=== PATIENT | male | born 1950 | race Caucasian/White ===

== ENCOUNTER 2024-04-07 22:22 | Emergency (ER) | payer BC, SELFPAY ==
[2024-04-07 22:35] VITALS: BP 91/61
[2024-04-07 22:55] VITALS: BMI 25.7
--- NOTE | 2024-04-07 22:58 | ED.GENMED ---
History of Present Illness
General
Chief Complaint: Fainting Sensation
Time Seen by Provider: 04/07/24 22:24
Travel History
Have you had any contact with someone who has COVID-19?: No
Do you have any symptoms of coronavirus? Fever > 100 degrees, chills, cough, shortness of breath, sore throat, loss of taste or smell, muscle aches, or headache?: No
History of Present Illness
History of Present Illness:
73-year-old male history of seizures, hypertension, multiple myeloma presenting with possible seizure. Patient states that he went to the bathroom where he had loose stools and then needed help getting off the toilet which is not uncommon per
family at bedside. Patient states that his stepson helped into his room where he sat on his bed. Daughter at bedside states stepson left the room to go get patient Imodium, was gone for approximately 20 seconds, and when he came back he found
patient laying on the bed having an seizure. Daughter states that stepson states that seizure lasted approximately 30 seconds. Daughters deny any confusion/postictal state, no tongue biting, no incontinence. Daughter states that patient has had
seizures in the past which has been contributed to fever at that time. Patient denies recent fever, chills, chest pain, shortness of breath, dizziness, abdominal pain, nausea, vomiting, or urinary symptoms. Patient denies any numbness, weakness,
or tingling. Patient states he got IVIG on 05/06 with IV fluids. Patient denies any dizziness while walking from his bathroom to the bedroom. Patient is not on blood thinners. Patient states he had 4 teeth extracted on 04/03 and did not take
medications for 1 week prior to procedure. Patient states he has since resumed home medications.
Phy Exam
Physical Exam
Physical Exam:
General: Alert, no acute distress. No apparent trauma
Head: NCAT
Eyes: clear conjunctiva, PERRLA, EOMI
ENT: multiple teeth extracted from right upper, right lower, and left upper. no overlying erythema, no fluctuance, no discharge. no active bleeding
Neck: supple
Cardiac: regular rate and rhythm, no murmur
Lungs: clear to auscultation bilaterally. No wheezes, rales, or rhonchi. Speaking full unlabored sentences. No respiratory distress.
Abdomen: soft, nondistended nontender. No rebound or guarding.
MSK: no lower extremity edema bilaterally. No deformity
Skin: warm, dry
Neuro: Alert and oriented x3. Cranial nerves II through XII grossly intact no focal deficits. 5-5 strength bilateral upper and lower extremities. Normal finger-nose bilaterally. Sensation intact.
Course
Orders/Labs/Results
Orders:
Orders
04/07/24 22:56
EKG [Electrocardiogram (*1)] Urgent
Reason for Study: Syncope
CT Head W/o Iv Contrast Urgent
Comment:
Reason For Exam: ?seizure
EKG- Treatment ONCE
CXR2 [CR Chest - 2 Views ] Urgent
Comment:
Reason For Exam: cough
04/07/24 22:57
UA Reflex to Culture [Urinalysis Reflex To Culture] Urgent
Date Specimen was Collected: 04/08/24
Time Specimen was Collected: 01:36
0.9% Sodium Chloride 1000 ml [Nss] 1,000 ml IV BOLUS
04/07/24 23:01
C DIFF [C difficile Antigen & Toxins] Urgent
SUHAS Source: Feces/Stool
Specimen Description:
04/07/24 23:14
CBC/With Diff [Complete Blood Count/With Diff] Urgent
CMP [Comprehensive Metabolic Panel] Urgent
Troponin I Urgent
Abnormal Lab Results
04/07/24 04/08/24
23:14 01:41
RBC 3.09 L 10^6/uL
(4.70-6.10)
Hgb 11.0 L g/dL
(13.0-18.0)
Hct 29.8 L %
(39.0-52.0)
MCV 96.4 H fL
(80.0-94.0)
MCH 35.6 H pg
(27.0-31.0)
Plt Count 111 L 10^3/uL
(130-400)
Monocytes % 10.3 H %
(1.7-9.3)
BUN 22 H mg/dl
(9-20)
Glucose 129 H mg/dl
(70-99)
Urine Ketones Trace A
(Negative)
04/07/24 23:14
04/07/24 23:14
Vital Signs
Initial and Last Documented VS:
Initial Vital Signs
Temp Pulse Resp BP Pulse Ox
98.2 F 87 20 91/61 98
04/07/24 22:35 04/07/24 22:35 04/07/24 22:35 04/07/24 22:35 04/07/24 22:35
Last Documented Vital Signs
Temp Pulse Resp BP Pulse Ox
98.2 F 83 20 105/77 96
04/07/24 22:35 04/08/24 01:41 04/08/24 01:41 04/08/24 01:41 04/08/24 01:41
MDM/Problems Addressed
MDM/Problems Addressed:
Patient presents to the Emergency Department with seizure
Number and Complexity of Problems Addressed at the Encounter
� Chronic conditions affecting care:
� Acute Exacerbation and/or Progression of Chronic Illness:
� Differential Diagnosis includes: Seizure, orthostatic hypotension, vasovagal syncope, electrolyte abnormality, pneumonia, C. difficile
Amount and/or Complexity of Data to be Reviewed and Analyzed
� I performed an independent evaluation of and my interpretation is:
EKG: NSR at 86bpm with MD 158 QTc 461 no acute ischemic changes
CT:
Xrays: CXR shows no acute consolidation or infiltrate. No CHF. Port right upper chest wall terminating in SVC.
Laboratory Studies: mild anemia with hemoglobin 11 (no known baseline), thrombocytopenia with platelets 111, troponin/LFTs/electrolytes within normal limits. UA negative for UTI.
Other:
� Review of other/old records reveals:
� Clinical information was obtained by an independent historian:
� Prescriptions/Medications Considered but not given:
� Further testing considered but not performed:
Risk of Complications and/or Morbidity or Mortality of Patient Management
� Social Determinants of health affecting care:
� Discussion with other providers (PCP, Hospitalists, Consultants, etc):
� Escalation of care including admission/observation vs risk of discharge considered: 73yoM hx multiple myeloma presenting with possible seizure after he had a bowel movement and walked back to his room. Patient was not post ictal, no tongue biting,
no incontinence. Neurologically intact here in ER. Results reviewed, mild anemia with hemoglobin 11 (no known baseline), thrombocytopenia with platelets 111, troponin/LFTs/electrolytes within normal limits. UA negative for UTI. CXR clear with no
focal infiltrate or consolidation. CT head shows No evidence of acute intracranial abnormality. Opacification of approximately 75% of the left mastoid air cells, most likely benign trapped fluid. Please correlate with any clinical symptoms that
would suggest mastoiditis. Upon reevaluation, patient denies any complaints. Vitals stable. No tenderness to palpation left mastoid. Left TM clear with no bulging or erythema. Lower suspicion for seizure given patient was not postictal, no tongue
biting, no incontinence. Suspect orthostatic syncope that resulted in seizure like activity. Patient received 1L NS IV. Vitals stable. Patient did not have any bowel movements in ER. Discussed results with patient and family at bedside. Stable for
discharge home with PCP and oncology follow up.
*Critical Care Note
Total Time (30-74mins, 75-104mins- exclusive of procedures): Not Applicable
ED Attending Note
-
Portions of this chart may have been created with voice recognition software.� Occasional wrong word or��sound alike� substitutions may have occurred due to the inherent limitations of voice recognition software.
Discharge Plan
Departure
Patient Disposition: Home (Routine Discharge)
Date of Disposition: 04/08/24
Time of Disposition: 02:06
Patient with high blood pressure during this ER visit?: No
Discharge Problem:
Orthostatic syncope
Prescriptions:
No Action
Darzalex
1 dose SC WEEKLY
dexamethasone
20 mg PO Q7D
Rx Instructions:
Tuesday night
ibuprofen
600 mg PO Q6H PRN (Reason: pain)
selinexor
1 dose PO WEEKLY
valacyclovir
1,000 mg PO DAILY
Referrals:
Michael Reyna MD [Family Provider] -
Activity Restrictions/Additional Instructions:
Follow up with primary care doctor and oncology in 1-2 days
Return to the emergency department for chest pain, shortness of breath, fever or new/worsening symptoms
Interventions
Interventions:
*Risk Screen - Suicide Last Done: 04/07/24 22:35
*General Assessment Last Done: 04/07/24 22:35
*Neglect/Abuse Screening Last Done: 04/07/24 22:35
ED- Fall Risk Assessment Last Done: 04/07/24 22:35
*ED COVID-19 Vaccine History Last Done: 04/07/24 22:35
ED- Cardiac Assessment Last Done: 04/07/24 23:05
ED- Neurological Assessment Last Done: 04/07/24 23:05
Discharge Date and Time
Print Language: [place]
[2024-04-07 23:21] LABS: % Basophils 0.2 % (0-2); % Eosinophils 0.2 % (0-6); % Immature Granulocytes 0.4 % (0-0.5); % Lymphocytes 33.1 % (20.5-51.1); % Monocytes 10.3 % (1.7-9.3); % Neutrophils 55.8 % (42.2-75.2); Absolute Lymphocytes 1.7 10^3/uL (1.2-3.4); Absolute Monocytes 0.5 10^3/uL (0.1-0.6); Absolute Neutrophils 2.9 10^3/uL (1.4-6.5); Hematocrit 29.8 % (39.0-52.0); Mean Corp Hgb Conc. 36.9 g/dL (33.0-37.0); Mean Corpuscular Hgb 35.6 pg (27.0-31.0); Mean Corpuscular Volume 96.4 fL (80.0-94.0); Mean Platelet Volume 9.6 fL (7.4-10.4); Nucleated Red Blood Cells % 0 % (-); Platelet Count 111 10^3/uL (130-400); Red Blood Cell Count 3.09 10^6/uL (4.70-6.10); Red Cell Dist. Width 13.7 % (11.5-14.5); White Blood Cell Count 5.2 10^3/uL (4.8-10.8)
[2024-04-07 23:45] LABS: Troponin I < 0.012 ng/ml
[2024-04-08 00:12] LABS: ALT (SGPT) 25 U/L (0-50); AST (SGOT) 35 U/L (17-59); Alkaline Phosphatase 54 U/L (38-126); Blood Urea Nitrogen 22 mg/dl (9-20); Calcium 8.7 mg/dl (8.4-10.2); Carbon Dioxide 26 mmol/L (22-30); Chloride 102 mmol/L (98-107); Estimated Creatinine Clearance 82 ml/min; Glucose 129 mg/dl (70-99); Potassium 3.7 mmol/L (3.5-5.1); Sodium 136 mmol/L (135-145); Total Bilirubin 1.1 mg/dl (0.2-1.3); Total Protein 6.6 g/dl (6.3-8.2); eGFR > 60.00
[2024-04-08] MEDS: NSS 1000 IV (00:31)
[2024-04-08 00:34] VITALS: BP 108/69
[2024-04-08 01:41] VITALS: BP 105/77
[2024-04-08 01:47] LABS: Urine Albumin Negative (Neg - Trace); Urine Bilirubin Negative (Negative); Urine Character Clear (Clear); Urine Color Yellow; Urine Glucose Negative (Negative); Urine Ketone Trace (Negative); Urine Leukocyte Negative (Negative); Urine Nitrite Negative (Negative); Urine Occult Blood Negative (Negative); Urine Specific Gravity 1.025 (<1.030); Urine Urobilinogen Negative (Neg - 1+)
--- NOTE | 2024-04-08 02:44 | VATNOTE ---
Patient's port flushed with 10ml nss and then a heparin flush per protocol as patient is being discharged.
[2024-04-08 02:59] VITALS: BP 114/65
== END 2024-04-08 03:27 | disposition home or self-care (01) ==
LOC: EMR 22:22
PROVIDERS: EMERGENCY PHYSICIAN Emergency Medicine; FAMILY PHYSICIAN Internal Medicine Medical Oncology
DX: R55 Syncope and collapse (principal); I10 Essential (primary) hypertension; R56.9 Unspecified convulsions; R19.7 Diarrhea, unspecified; C90.00 Multiple myeloma not having achieved remission; D64.9 Anemia, unspecified; Z98.890 Other specified postprocedural states; Z88.2 Allergy status to sulfonamides
CPT/HCPCS: 99285; 70450; 71046; 80053; 81003; 84484; 85025; 93005

== ENCOUNTER 2024-11-18 14:15 | Emergency (ER) | payer BC, MEDICARE, SELFPAY ==
[2024-11-18 14:17] VITALS: BP 116/81
[2024-11-18 14:41] LABS: Urine Albumin 2+ (Neg - Trace); Urine Bilirubin Negative (Negative); Urine Character Very Cloudy (Clear); Urine Color Brown; Urine Glucose Negative (Negative); Urine Ketone Trace (Negative); Urine Leukocyte 1+ (Negative); Urine Nitrite Negative (Negative); Urine Occult Blood 4+ (Negative); Urine Urobilinogen Negative (Neg - 1+); Urine pH 6.5 (5.0-9.0)
[2024-11-18 14:45] LABS: White Blood Cell Count 5.9 10^3/uL (4.8-10.8)
[2024-11-18 14:46] LABS: % Basophils 0.3 % (0-2); % Eosinophils 1.2 % (0-6); % Immature Granulocytes 0.3 % (0-0.5); % Lymphocytes 27.4 % (20.5-51.1); % Monocytes 7.4 % (1.7-9.3); % Neutrophils 63.4 % (42.2-75.2); Absolute Eosinophils 0.1 10^3/uL (0-0.7); Absolute Lymphocytes 1.6 10^3/uL (1.2-3.4); Absolute Monocytes 0.4 10^3/uL (0.1-0.6); Absolute Neutrophils 3.7 10^3/uL (1.4-6.5); Hematocrit 33.9 % (39.0-52.0); Hemoglobin 11.2 g/dL (13.0-18.0); Mean Corpuscular Hgb 33.4 pg (27.0-31.0); Mean Corpuscular Volume 101.2 fL (80.0-94.0); Nucleated Red Blood Cells % 0 % (-); Red Blood Cell Count 3.35 10^6/uL (4.70-6.10); Red Cell Dist. Width 14.2 % (11.5-14.5)
[2024-11-18 14:53] LABS: ALT (SGPT) 54 U/L (0-50); AST (SGOT) 53 U/L (17-59); Albumin 3.5 g/dl (3.5-5.0); Alkaline Phosphatase 96 U/L (38-126); Blood Urea Nitrogen 16 mg/dl (9-20); Calcium 8.7 mg/dl (8.4-10.2); Carbon Dioxide 32 mmol/L (22-30); Chloride 98 mmol/L (98-107); Glucose 113 mg/dl (70-99); Potassium 3.9 mmol/L (3.5-5.1); Sodium 136 mmol/L (135-145); Total Bilirubin 0.8 mg/dl (0.2-1.3); Total Protein 5.7 g/dl (6.3-8.2); eGFR > 60.00
[2024-11-18 15:09] LABS: Mean Platelet Volume 10.1 fL (7.4-10.4); Platelet Count 95 10^3/uL (130-400)
[2024-11-18 15:31] LABS: Urine Red Blood Cell >100 /HPF (0-2); Urine Squamous Cell 0-2 /LPF (Few)
[2024-11-18 15:32] LABS: Urine Bacteria Moderate (Negative)
[2024-11-18 16:50] VITALS: BMI 26.2
[2024-11-18 16:56] VITALS: BP 117/78
[2024-11-18 17:00] VITALS: BP 116/73
--- NOTE | 2024-11-18 17:59 | ED.GENMED ---
History of Present Illness
General
Chief Complaint: Weakness
Source: patient
Exam Limitations: none
Time Seen by Provider: 11/18/24 17:25
Nursing documentation reviewed up to this point in time: agreed with
History of Present Illness
History of Present Illness:
74 yo male with h/o seizures, HTN, anemia, multiple myeloma, here for productive cough, dark urine
Hx Multiple myeloma followed at [facility] onc[facility], on Immunotherapy past 4 years 2 weeks on, one week off and repeat.
Also getting Daratumumab monthly, IVIG q 2 months, lab work and IV hydration weekly
Past History
Past History
ED Past Medical History: Cancer (Multiple Myeloma) and HTN
ED Past Surgical History: Cholecystectomy and Other (hernia repair, port placement)
Social History
Tobacco: Non-smoker
Alcohol: None
Personal:
Review of Systems
Review of Systems
Allergies reviewed?: Yes
All Other Systems: ROS reviewed and negative except as documented in HPI and ROS
Constitutional: Reports fatigue; Denies fever
EENT: Denies sore throat
Respiratory: Reports cough; Denies trouble breathing
Cardiac: Denies chest pain
ABD/GI: Denies abdominal pain, nausea, vomiting or diarrhea
: Reports dark urine; Denies dysuria, frequency, flank pain or difficulty voiding
Musculoskeletal: Reports no symptoms
Skin: Reports no symptoms
Neurological: Reports no symptoms
Phy Exam
Physical Exam
Physical Exam:
GENERAL: No acute distress. A&Ox3.
CONSTITUTIONAL: Afebrile.
EYES: clear, conjunctivae normal
ENMT: moist mucus membranes, Pharynx nl
RESPIRATORY: Regular respirations, nonlabored, lungs with crackles in bases and R lung adventitious sounds.
CARDIOVASCULAR: Regular rate and rhythm, no murmurs, no rubs.
GI: Soft, nontender, normal BS
MUSCULOSKELETAL: Moves with ease. Well perfused. No edema
SKIN: Warm, dry, pink
PSYCH: Normal mood and affect. Well kept, interactive and appropriate
NEUROLOGIC: Awake, alert and oriented. No focal neurological deficits
Course
Orders/Labs/Results
Orders:
Orders
11/18/24 14:26
Complete Blood Count/With Diff Urgent
Comprehensive Metabolic Panel Urgent
Urinalysis Reflex To Culture Urgent
Date Specimen was Collected: 11/18/24
Time Specimen was Collected: 14:22
Urine Microscopic Reflex Cult Urgent
Urine Culture Urgent
SUHAS Source: U
Specimen Description:
Date Specimen was Collected: 11/18/24
Time Specimen was Collected: :
11/18/24 18:19
CT Abd/pel Without Iv Or Oral Urgent
Comment:
Reason For Exam: hematuria
CR Chest - 2 Views Urgent
Comment:
Reason For Exam: cough, fever
11/18/24 19:22
COVID-19 Antigen Urgent
Source: Nasal Swab
Influenza A+B Rapid Molecular Urgent
SUHAS Source: Nasal Swab
Specimen Description:
11/18/24 20:09
CefTRIAXone [Rocephin] 1,000 mg IV NOW STA
11/18/24 20:22
Cefdinir [Omnicef] 300 mg PO NOW STA
Abnormal Lab Results
11/18/24
14:26
RBC 3.35 L 10^6/uL
(4.70-6.10)
Hgb 11.2 L g/dL
(13.0-18.0)
Hct 33.9 L %
(39.0-52.0)
MCV 101.2 H fL
(80.0-94.0)
MCH 33.4 H pg
(27.0-31.0)
Plt Count 95 L 10^3/uL
(130-400)
Carbon Dioxide 32 H mmol/L
(22-30)
Glucose 113 H mg/dl
(70-99)
ALT 54 H U/L
(0-50)
Total Protein 5.7 L g/dl
(6.3-8.2)
Urine Ketones Trace A
(Negative)
Ur Occult Blood Reflex 4+ A
(Negative)
Leukocyte Esterase Rfl 1+ A
(Negative)
Urine RBC >100 A /HPF
(0-2)
Urine WBC (Reflex) 11-15 A /HPF
(0-5)
Urine Bacteria (Reflex) Moderate A
(Negative)
Urine Albumin (Reflex) 2+ A
(Neg - Trace)
11/18/24 14:26
11/18/24 14:26
Vital Signs
Initial and Last Documented VS:
Initial Vital Signs
Temp Pulse Resp BP Pulse Ox
98.0 F 103 18 116/81 97
11/18/24 14:17 11/18/24 14:17 11/18/24 14:17 11/18/24 14:17 11/18/24 14:17
Last Documented Vital Signs
Temp Pulse Resp BP Pulse Ox
98.0 F 97 15 113/66 95
11/18/24 14:17 11/18/24 20:00 11/18/24 20:00 11/18/24 20:00 11/18/24 19:45
MDM/Problems Addressed
MDM/Problems Addressed:
74 yo male with h/o seizures, HTN, anemia, multiple myeloma, here for productive cough, dark urine
Hx Multiple myeloma followed at [facility], on Immunotherapy past 4 years 2 weeks on, one week off and repeat.
Also getting Daratumumab monthly, IVIG q 2 months, lab work and IV hydration weekly
Afebrile, NAD
CBC unremarkable
CMP normal
U/A significant hematuria, few WBCs
Covid neg
CXR: NAD
Influenza B positive
*Critical Care Note
Total Time (30-74mins, 75-104mins- exclusive of procedures): Not Applicable
ED Attending Note
-
Portions of this chart may have been created with voice recognition software.� Occasional wrong word or��sound alike� substitutions may have occurred due to the inherent limitations of voice recognition software.
Discharge Plan
Departure
Patient Disposition: Home (Routine Discharge)
Date of Disposition: 11/18/24
Time of Disposition: 20:19
Patient with high blood pressure during this ER visit?: No
Condition: Fair
Discharge Problem:
Influenza B, Acute UTI
Prescriptions:
New
cefdinir 300 mg capsule
300 mg PO BID Qty: 14 0RF
No Action
loperamide 2 mg Tablet
2 mg PO DAILYPRN PRN (Reason: diarrhea)
Theragen Tablet
1 tab PO DAILY
valacyclovir 500 mg Tablet
500 mg PO DAILY
ascorbic acid (vitamin C) [Vitamin C] 500 mg Tablet
500 mg PO DAILY
dexamethasone 4 mg Tablet
12 mg PO UD
Rx Instructions:
take 3 tablets the day of selinexor injection
ibuprofen 200 mg Tablet
400 mg PO DAILYPRN PRN (Reason: mild pain)
gabapentin 300 mg Capsule
300 mg PO HS
cholecalciferol (vitamin D3) [Vitamin D3] 25 mcg (1,000 unit) Tablet
25 mcg PO DAILY
Darzalex 20 mg/mL Solution
0 mg IV MONTHLY
magnesium oxide 400 mg magnesium Tablet
400 mg PO DAILY
selinexor 60 mg/week (60 mg x 1) Tablet
0 mg PO PER PKG DIR
Referrals:
Jd Carbone DO [Family Provider] - Call in 1-3 days for appt
Activity Restrictions/Additional Instructions:
As we discussed, you have the Flu and a urinary tract infection.
I sent a prescription to your pharmacy for antibiotic Cefdinir to start tomorrow as you were given a dose here today.
Call your doctor tomorrow and make appointment for 10-14 days for recheck of your urine test
Seek medical care immediately for fever not relieved by Tylenol or Ibuprofen, abdominal pain, vomiting, shaking chills or feeling sicker in any way.
Interventions
Interventions:
*Risk Screen - Suicide Last Done: 11/18/24 14:17
*General Assessment Last Done: 11/18/24 14:17
*Neglect/Abuse Screening Last Done: 11/18/24 14:17
ED- Fall Risk Assessment Last Done: 11/18/24 16:49
*ED COVID-19 Vaccine History Last Done: 11/18/24 14:17
*Nursing Disposition Last Done: 11/18/24 21:09
ED- Cardiac Assessment Last Done: 11/18/24 16:55
ED- Neurological Assessment Last Done: 11/18/24 16:55
ED- Pulmonary Assessment Last Done: 11/18/24 16:55
Discharge Date and Time
Discharge Date/Time: 11/18/24 21:10
Print Language: [place]
[2024-11-18 18:00] VITALS: BP 102/67
--- NOTE | 2024-11-18 18:15 | EDRN ---
Courtney REYEZ in room w/ pt at this time.
[2024-11-18 19:50] LABS: COVID-19 Antigen Negative (Negative)
[2024-11-18 20:00] VITALS: BP 113/66
[2024-11-18] MEDS: OMNICEF 300 MG PO (20:35)
== END 2024-11-18 21:10 | disposition home or self-care (01) ==
LOC: EMR 14:15
PROVIDERS: Emergency Medicine; Registered Nurse; EMERGENCY PHYSICIAN Student in an Organized Health Care Education/Training Program; FAMILY PHYSICIAN Family Medicine
DX: J10.1 Influenza due to other identified influenza virus with other respiratory manifestations (principal); N39.0 Urinary tract infection, site not specified; I10 Essential (primary) hypertension; C90.00 Multiple myeloma not having achieved remission; Z90.49 Acquired absence of other specified parts of digestive tract
CPT/HCPCS: 99284; 71046; 74176; 80053; 81003; 81015; 85025; 87086; 87502; 87811